=== PATIENT | male | born 1980 | race Two or more races ===

== ENCOUNTER 2022-01-28 21:46 | Emergency (ER) | payer MEDICAID, OTHER ==
[~2022-01-28] VITALS: Ht 167.6 cm; Wt 95.5 kg
[2022-01-28 23:06] VITALS: BP 128/90
[2022-01-29] MEDS ORDERED: DOXY-332 PO (00:35)
[2022-01-29 00:38] LABS: Urine Bacteria NONE SEEN /hpf (None Seen); Urine Blood TRACE /uL (Negative); Urine Mucus FEW (None Seen); Urine Specific Gravity 1.025 (1.001-1.035); Urine WBC 346 /hpf (0 - 3); Urine WBC Clumps PRESENT /hpf (None Seen)
[2022-01-29] MEDS ORDERED: AZITHROMYCIN 250 MG TAB PO ONE (00:45)
[2022-01-29] MEDS ORDERED: cefTRIAXone SOD 1,000 MG VL IM ONE (00:45)
== END 2022-01-29 01:17 | disposition home or self-care (01) ==
LOC: ER 21:46
DX: N39.0 Urinary tract infection, site not specified (principal); F17.210 Nicotine dependence, cigarettes, uncomplicated; Z20.2 Contact with and (suspected) exposure to infections with a predominantly sexual mode of transmission
CPT/HCPCS: 81001; 99283; J0696

== ENCOUNTER 2022-06-08 15:44 | Emergency (ER) | payer MEDICAID ==
[~2022-06-08] VITALS: Ht 167.6 cm; Wt 90.1 kg
[~2022-06-08 15:44] MED LIST: DOXY-332 PO
[2022-06-08 18:01] VITALS: BP 123/86
[2022-06-08] MEDS ORDERED: IBUP800T26 PO (19:57)
[2022-06-08] MEDS ORDERED: CEPH-510 PO (19:57)
== END 2022-06-08 20:29 | disposition home or self-care (01) ==
LOC: ER 15:44
DX: S01.81XA Laceration without foreign body of other part of head, initial encounter (principal); F17.210 Nicotine dependence, cigarettes, uncomplicated; Z79.2 Long term (current) use of antibiotics; W18.39XA Other fall on same level, initial encounter; Y93.89 Activity, other specified; Y92.89 Other specified places as the place of occurrence of the external cause; Y99.8 Other external cause status
CPT/HCPCS: 12013

== ENCOUNTER 2023-02-25 21:01 | Emergency (ER) | payer MEDICAID ==
[~2023-02-25] VITALS: Ht 172.7 cm; Wt 91.5 kg
[~2023-02-25 21:01] MED LIST changes: +CEPH-510 PO; -DOXY-332 PO; +DOXY-448 PO; +IBUP-1455 PO
[2023-02-25] MEDS ORDERED: cefTRIAXone SOD 500 MG VL IM ONE (21:45)
[2023-02-25] MEDS ORDERED: AZITHROMYCIN 250 MG TAB PO ONE (21:45)
[2023-02-25 22:58] LABS: Urine Bacteria NONE SEEN /hpf (None Seen); Urine Blood 2+ /uL (Negative); Urine Clarity HAZY (Clear); Urine Protein, UAD Negative (Negative); Urine Specific Gravity 1.021 (1.001-1.035); Urine Urobilinogen Normal (Negative); Urine WBC 60 /hpf (0 - 3); Urine WBC Clumps PRESENT /hpf (None Seen); Urine pH 6.5 (5.0-8.0)
[2023-02-25 23:00] LABS: Urine Color STRAW (Yellow)
[2023-02-25 23:18] VITALS: BP 140/94; PULSE 91; RESP 19; TEMP 98.7; O2SAT 97
[2023-02-28 12:06] LABS: Chlamydia Trachomatis, NAA Negative (Negative); Neisseria gonorrhoeae, NAA Positive (Negative)
== END 2023-02-25 23:19 | disposition home or self-care (01) ==
LOC: ER 21:01
DX: N39.0 Urinary tract infection, site not specified (principal); A64 Unspecified sexually transmitted disease; F17.210 Nicotine dependence, cigarettes, uncomplicated
CPT/HCPCS: 81001; 87491; 87591; 96372; 99283; J0696

== ENCOUNTER 2024-12-14 19:19 | Emergency (ER) | payer MEDICAID ==
[~2024-12-14] VITALS: Ht 172.7 cm; Wt 77.2 kg
[~2024-12-14 19:19] MED LIST changes: -DOXY-448 PO; +DOXY100C79 PO
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
[2024-12-14] MEDS ORDERED: IBUP-1456 PO (21:09)
[2024-12-14 21:18] VITALS: BP 127/83; PULSE 107; RESP 19; TEMP 98.1; O2SAT 97
[2024-12-14] MEDS: OXYCODONE W/ ACETAMINOPHEN 5/325MG TABLET PO ONE (21:18)
[2024-12-14] MEDS: IBUPROFEN 600 MG TAB PO ONE (21:18)
== END 2024-12-14 21:50 | disposition home or self-care (01) ==
LOC: ER 19:19 → EDBD 19:19 → ER 21:50
DX: S82.142A Displaced bicondylar fracture of left tibia, initial encounter for closed fracture (principal); F17.210 Nicotine dependence, cigarettes, uncomplicated; V28.99XA Unspecified rider of other motorcycle injured in noncollision transport accident in traffic accident, initial encounter; Y93.89 Activity, other specified; Y92.410 Unspecified street and highway as the place of occurrence of the external cause; Y99.8 Other external cause status
CPT/HCPCS: 29505; 73562; 73590